=== PATIENT | female | born 1965 | race Caucasian/White ===

== ENCOUNTER 2025-06-29 20:47 | Emergency (ER) | payer OTHER, SELFPAY ==
[2025-06-29 20:54] VITALS: BP 143/88
[2025-06-29 21:15] LABS: Hematocrit 37.7 % (37.0-47.0); Hemoglobin 13.2 g/dL (12.0-16.0); Mean Corp Hgb Conc. 35.0 g/dL (33.0-37.0); Mean Corpuscular Volume 84.9 fL (81.0-99.0); Nucleated Red Blood Cells % 0 %; Platelet Count 274 10^3/uL (130-400); Red Cell Dist. Width 12.8 % (11.5-14.5)
[2025-06-29 21:40] LABS: ALT (SGPT) 22 U/L (0-35); AST (SGOT) 22 U/L (14-36); Albumin 4.2 g/dl (3.5-5.0); Alkaline Phosphatase 77 U/L (38-126); Blood Urea Nitrogen 16 mg/dl (7-17); Calcium 9.6 mg/dl (8.4-10.2); Carbon Dioxide 23 mmol/L (22-30); Chloride 105 mmol/L (98-107); Glucose 141 mg/dl (70-99); Potassium 3.7 mmol/L (3.5-5.1); Sodium 136 mmol/L (135-145); Total Protein 7.0 g/dl (6.3-8.2); eGFR > 60.00
[2025-06-29 21:43] LABS: COVID-19 Antigen Negative (Negative)
[2025-06-29 23:54] VITALS: BP 120/58; BMI 35.6
[2025-06-30] MEDS: DUONEB 3 ML INH (00:01)
[2025-06-30 00:23] LABS: Troponin I < 0.012 ng/ml
[2025-06-30 00:40] LABS: D-Dimer < 0.27 ug/mlFEU (0.00-0.50)
--- NOTE | 2025-06-30 02:14 | ED.GENMED ---
History of Present Illness
General
Chief Complaint: Musculo-Skeletal Complaint
Source: patient
Exam Limitations: none
Time Seen by Provider: 06/29/25 23:38
Nursing documentation reviewed up to this point in time: agreed with
History of Present Illness
History of Present Illness:
Note:
CHIEF COMPLAINT(S)
Persistent cough following a theater outing.
HISTORY OF PRESENT ILLNESS
The patient is a 60-year-old female who presented with a persistent, severe cough that began after attending a play earlier in the evening. She experienced coughing continuously for approximately an hour, during which she noted shortness of breath.
However, the shortness of breath has since subsided. The patient reported that while the coughing had stopped for some time, it feels like it may start again. She has not experienced any chest pain, and there has been no increase in leg swelling,
calf tenderness, or leg pain. The patient expressed concern about the cough and sought evaluation to ensure no other serious underlying condition, such as a blood clot.
PAST MEDICAL AND SURGICAL HISTORY
The patient has a history of hypertension, which is well-controlled with medication. She also mentioned having hearing issues and a history of two sections.
CHRONIC MEDICAL CONDITIONS SIGNIFICANTLY AFFECTING CARE
The patient has a history of hypertension.
PLAN
- Order a blood test to rule out blood clots. If the test is negative, reassure the patient further. If positive, consider a CT scan of the chest to investigate further.
- Provide a breathing treatment to alleviate the cough.
DIFFERENTIAL DIAGNOSIS
The Differential Diagnosis includes, in no particular order and is not limited to:
1. Upper respiratory infection
2. Acute bronchitis
3. Gastroesophageal reflux disease (GERD)
4. Chronic obstructive pulmonary disease (COPD) exacerbation
5. Allergic reaction
6. Pulmonary embolism
7. Asthma
8. Viral pneumonia
9. Medication side effect
10. Heart failure
CARE-UPDATE
06/30/25 - 02:10
patients update includes administering a one-time dose of Steroid (Decadron) to manage the cough. Clinical evaluation shows no signs of pneumonia. The patient confirmed they are not diabetic.
Disposition:
SUMMARY OF ENCOUNTER
The patient is a 60-year-old female who presented with arm pain and a persistent cough following a theater outing. The cough was reported to have improved with initial treatment but persisted as a concern. Upon evaluation, it was determined that the
persistent cough was due to bronchitis. A thorough clinical evaluation revealed no signs of pneumonia, and the patient showed improvement after treatment.
DISPOSITION
Discharge to home.
ASSESSMENT
The persistent cough is most likely due to acute bronchitis.
EMERGENCY TREATMENTS ADMINISTERED
A one-time dose of steroids was administered to manage the cough.
PLAN
- Provide a prescription for an inhaler, though the patient indicated she already has albuterol at home.
- Discharge the patient with instructions for symptomatic management of bronchitis.
MEDICATION RECONCILIATION
- Prescribed steroids for the management of bronchitis.
- Patient has albuterol inhaler at home.
MEDICAL DECISION MAKING
- Number and Complexity of Problems Addressed: Chronic conditions affecting care include hypertension. Differential diagnoses considered were bronshitis.
-Data:
Category 1
Tests and documents: Evaluation included clinical examination, no labs or radiology tests were ordered as the diagnosis was established clinically.
Category 2
My independent interpretation of the clinical findings was consistent with bronchitis.
-Risk:
Prescription medication was prescribed in the form of steroids to manage bronchitis. Given the improvement with treatment and clinical evaluation reassuring, decision was made to discharge the patient safely with outpatient care instructions.
DIAGNOSIS
- Acute Bronchitis (ICD-10: J20.9)
Phy Exam
Physical Exam
Physical Exam:
.
Pulmonary Exam
Pulmonary Exam: generalized wheezing
Cough: coarse cough and hacking cough
Course
Orders/Labs/Results
Orders:
Orders
06/29/25 20:48
Electrocardiogram (*1) Urgent
Reason for Study: Chest Pain
EKG- Treatment ONCE
06/29/25 21:02
COVID-19 Antigen Urgent
Source: Nasal Swab
Influenza A+B Rapid Molecular Urgent
BILLY Source: Nasal Swab
Specimen Description:
06/29/25 21:06
Complete Blood Count/With Diff Urgent
Comprehensive Metabolic Panel Urgent
06/29/25 23:51
D-Dimer Urgent
Troponin I Urgent
06/29/25 23:59
Ipratropium/Albuterol Sulfate [Duoneb] 3 ml INH R NOW ONE
06/30/25 01:22
CR Chest - 2 Views Urgent
Comment:
Reason For Exam: chest pain
06/30/25 02:13
Dexamethasone Pf [Decadron] 10 mg PO NOW STA
Abnormal Lab Results
06/29/25
21:06
Absolute Monos (auto) 1.0 H 10^3/uL
(0.1-0.6)
Lymphocytes % 16.9 L %
(20.5-51.1)
Monocytes % 10.5 H %
(1.7-9.3)
Eosinophils % 7.9 H %
(0-6)
Glucose 141 H mg/dl
(70-99)
06/29/25 21:06
06/29/25 21:06
Vital Signs
Initial and Last Documented VS:
Initial Vital Signs
Temp Pulse Resp BP Pulse Ox
99.4 F 113 20 143/88 96
06/29/25 20:54 06/29/25 20:54 06/29/25 20:54 06/29/25 20:54 06/29/25 20:54
Last Documented Vital Signs
Temp Pulse Resp BP Pulse Ox
99.4 F 113 20 120/58 97
06/29/25 20:54 06/29/25 20:54 06/29/25 20:54 06/29/25 23:54 06/30/25 02:17
*Radiology
Radiology exam reviewed: all reviewed NAD by ED Provider
*Pulse Oximetry
SaO2: 97
Oxygen Mode of Delivery: Room air
Patient hypoxic: no
*Critical Care Note
Total Time (30-74mins, 75-104mins- exclusive of procedures): Not Applicable
ED Attending Note
-
Portions of this chart may have been created with voice recognition software.� Occasional wrong word or��sound alike� substitutions may have occurred due to the inherent limitations of voice recognition software.
Discharge Plan
Departure
Patient Disposition: Home (Routine Discharge)
Date of Disposition: 06/30/25
Time of Disposition: 02:15
Patient with high blood pressure during this ER visit?: Yes
Condition: Good
Discharge Problem:
Bronchitis, Cough
Instructions: Cough in adults
Referrals:
JARETH MARTINEZ MD [Family Provider, Internal Medicine]
Activity Restrictions/Additional Instructions:
Please use your inhaler as directed.
Thank You for choosing [facility].
It was a pleasure meeting you and taking part in your care. We hope for your continued healing and wellness.
Please read discharge instructions in their entirety. However, they are for general education and may not describe your exact diagnosis at discharge. Information on your ER visit and medical conditions were discussed with you along with appropriate
follow up information...
If indicated, please take your medications as instructed and indicated on discharge paperwork.
Please schedule a follow up appointment as directed. Call to schedule an appointment
Please return to the emergency department with ANY change in, persisting, or worsening of symptoms. If any of your symptoms do not improve, or persist, or become more severe within 6-12 hours, please return to the emergency department for further
care.
Please return to the emergency department if you develop a headache, neck pain/stiffness, fever greater than 100.4F, chest pain, shortness of breath, persistent nausea, vomiting, slurred speech, difficulty walking, numbness/tingling, weakness, signs
of infection or any other symptoms that are worrisome to you.
If you have any questions or concerns please do not hesitate to call the Hospital at or E-mail me directly at [email or web address]
Interventions
Interventions:
*Risk Screen - Suicide Last Done: 06/29/25 20:57
*General Assessment Last Done: 06/29/25 20:57
*Neglect/Abuse Screening Last Done: 06/29/25 20:57
*ED- Fall Risk Assessment Last Done: 06/29/25 23:55
*ED COVID-19 Vaccine History Last Done: 06/29/25 20:57
*Nursing Disposition Last Done: 06/30/25 03:06
ED-Musculoskeletal Assessment Last Done: 06/29/25 23:55
Discharge Date and Time
Discharge Date/Time: 06/30/25 03:07
Print Language: [id number]
[2025-06-30] MEDS: DECADRON 10 MG PO (03:00)
== END 2025-06-30 03:07 | disposition home or self-care (01) ==
LOC: EMR 20:47
PROVIDERS: Emergency Medicine; EMERGENCY PHYSICIAN Student in an Organized Health Care Education/Training Program; FAMILY PHYSICIAN Internal Medicine
DX: J20.9 Acute bronchitis, unspecified (principal); I10 Essential (primary) hypertension
CPT/HCPCS: 99284; 94640; 71046; 80053; 84484; 85025; 85379; 87502; 87811; 93005